=== PATIENT | female | born 1990 | race Two or more races ===

== ENCOUNTER 2021-02-16 20:27 | Emergency (ER) | payer OTHER ==
[~2021-02-16] VITALS: Ht 152.4 cm; Wt 93.0 kg
== END 2021-02-17 00:09 | disposition home or self-care (01) ==
LOC: ER 20:27
DX: O21.0 Mild hyperemesis gravidarum (principal); Z34.82 Encounter for supervision of other normal pregnancy, second trimester

== ENCOUNTER 2021-02-22 10:55 | Inpatient (IN) | payer OTHER ==
[~2021-02-22] VITALS: Ht 152.4 cm; Wt 90.7 kg
[2021-02-22] MEDS ORDERED: PRENATAL TABLE1 EAC2 PO (12:08)
[2021-02-22] MEDS ORDERED: PEPCID20 MG PO (12:08)
== END 2021-02-23 10:52 | disposition home or self-care (01) | DRG 833 ==
LOC: LDR 10:55
PROVIDERS: ADMIT Obstetrics & Gynecology; ATTEND Obstetrics & Gynecology
PROC: 4A1HXFZ Monitoring of Products of Conception, Cardiac Rhythm, External Approach (ICD-10-PCS; 2021-02-22)
PROC: BY4CZZZ Ultrasonography of Second Trimester, Single Fetus (ICD-10-PCS; principal; 2021-02-23)
DX: O34.32 Maternal care for cervical incompetence, second trimester (principal); Z3A.18 18 weeks gestation of pregnancy; Z20.822 Contact with and (suspected) exposure to COVID-19

== ENCOUNTER 2021-04-11 07:52 | Outpatient (CLI) | payer OTHER ==
[~2021-04-11 07:52] MED LIST: PEPCID20 MG PO; PRENATAL TABLE1 EAC2 PO
== END 2021-04-11 09:03 | disposition home or self-care (01) ==
LOC: PRENATAL 07:52
PROVIDERS: ATTEND Obstetrics & Gynecology Maternal & Fetal Medicine
DX: O35.0XX1 Maternal care for (suspected) central nervous system malformation in fetus, fetus 1 (principal); O35.3XX1 Maternal care for (suspected) damage to fetus from viral disease in mother, fetus 1; O98.512 Other viral diseases complicating pregnancy, second trimester; O99.212 Obesity complicating pregnancy, second trimester; O60.02 Preterm labor without delivery, second trimester; Z36.89 Encounter for other specified antenatal screening; Z3A.25 25 weeks gestation of pregnancy

== ENCOUNTER 2021-06-27 09:09 | Outpatient (CLI) | payer OTHER | END 2021-06-27 10:39 | disposition home or self-care (01) | LOC: PRENATAL 09:09 | PROVIDERS: ATTEND Obstetrics & Gynecology Maternal & Fetal Medicine | DX: O26.843 Uterine size-date discrepancy, third trimester (principal); O35.0XX1 Maternal care for (suspected) central nervous system malformation in fetus, fetus 1; O36.5931 Maternal care for other known or suspected poor fetal growth, third trimester, fetus 1; Z36.89 Encounter for other specified antenatal screening; Z3A.35 35 weeks gestation of pregnancy ==

== ENCOUNTER 2021-07-04 17:41 | Inpatient (IN) | payer OTHER ==
[~2021-07-04] VITALS: Ht 152.4 cm; Wt 2.3 kg
[2021-07-04] MEDS ORDERED: CHILDREN'S ASPI81 MG (18:59)
[2021-07-08] MEDS ORDERED: Tylenol #3 PO (08:51)
[2021-07-08] MEDS ORDERED: NAPR500T14 PO (08:51)
== END 2021-07-08 12:55 | disposition home or self-care (01) | DRG 788 ==
LOC: LDR 17:41 → OB/GYN 17:41 → O/R 07-05 23:39 → OB/GYN 07-06 12:05
PROVIDERS: ADMIT Obstetrics & Gynecology; ATTEND Obstetrics & Gynecology
PROC: 3E0P7VZ Introduction of Hormone into Female Reproductive, Via Natural or Artificial Opening (ICD-10-PCS; 2021-07-04)
PROC: 4A1HXFZ Monitoring of Products of Conception, Cardiac Rhythm, External Approach (ICD-10-PCS; 2021-07-04)
PROC: 10907ZC Drainage of Amniotic Fluid, Therapeutic from Products of Conception, Via Natural or Artificial Opening (ICD-10-PCS; 2021-07-05)
PROC: 3E033VJ Introduction of Other Hormone into Peripheral Vein, Percutaneous Approach (ICD-10-PCS; 2021-07-05)
PROC: 10D00Z1 Extraction of Products of Conception, Low, Open Approach (ICD-10-PCS; principal; 2021-07-05 22:00)
DX: O61.0 Failed medical induction of labor (principal); O62.1 Secondary uterine inertia; O24.420 Gestational diabetes mellitus in childbirth, diet controlled; O99.824 Streptococcus B carrier state complicating childbirth; Z3A.37 37 weeks gestation of pregnancy; Z37.0 Single live birth